=== PATIENT | female | born 1990 | race Caucasian/White ===

== ENCOUNTER 2019-03-13 10:35 | Emergency (ER) | payer OTHER ==
[2019-03-13 10:45] VITALS: BP 114/73; PULSE 79; RESP 18; TEMP 97.7
[2019-03-13] MEDS ORDERED: predniSONE 20 MG TAB PO STA (11:08)
[2019-03-13] MEDS ORDERED: KETOROLAC 60 MG/2 ML VIAL IM STA (11:08)
--- NOTE | 2019-03-13 11:33 | ED ---
Back Pain HPI - General Chief Complaint: Back Pain/Injury Stated Complaint: Sciatic Pain Time Seen by Provider: 03/13/19 10:52 Source: patient Limitations: physical limitation - History of Present Illness Initial Comments: 28yo female presenting for "sciatic pain". Patient states she has been sleeping on an air mattress for the past 2 nights. She states she began noticing sharp pain that starts mid buttock and and radiates toward the left lower leg. She states that it increases with range of motion. Patient denies loss of bowel bladder control urinary retention fever or chills night sweats, muscle weakness or loss sensation of the lower extremities, IV drug use she denies history of cancer. Patient denies any specific falls or trauma to the low back. Remaining ROS (-). Upon arrival patient appears well, no signs of acute distress. Pt states she has experienced similar pain about 6 years ago that resolved. - Related Data Previous Rx's Medication Instructions Recorded Ibuprofen 800 mg PO Q8H PRN 7 Days #21 tablet 03/13/19 predniSONE 20 mg PO DAILY 5 Days #5 tab 03/13/19 Allergies Allergy/AdvReac Type Severity Reaction Status Date / Time No Known Allergies Allergy Verified 03/13/19 10:45 Review of Systems ROS Statement: Those systems with pertinent positive or pertinent negative responses have been documented in the HPI. ROS Other: All systems not noted in ROS Statement are negative. Past Medical History Additional Past Medical History / Comment(s): back pain History of Any Multi-Drug Resistant Organisms: None Reported Past Surgical History: No Surgical Hx Reported Past Psychological History: No Psychological Hx Reported Smoking Status: Never smoker Past Alcohol Use History: Occasional Past Drug Use History: Marijuana General Exam - General Exam Comments Initial Comments: General: The patient is awake and alert, in no distress, and does not appear acutely ill. Eye: Pupils are equal, round and reactive to light, extra-ocular movements are intact. No nystagmus. There is normal conjunctiva bilaterally. No signs of icterus. Cardiovascular: There is a regular rate and rhythm. No murmur, rub or gallop is appreciated. Respiratory: Lungs are clear to auscultation, respirations are non-labored, breath sounds are equal. No wheezes, stridor, rales, or rhonchi. Gastrointestinal: Soft, non-distended, non-tender abdomen without masses or organomegaly noted. There is no rebound or guarding present. Musculoskeletal: Normal ROM of the LE b/l. Strength 5/5 of the LE equal b/l. (+) SLR of the left lower extremities. Sensation intact of the LE bilaterally. DP pulses equal bilaterally 2+. +2/5 Patellar and achilles DTR. No myoclonus or fasiculations. Neurological: A&O x 3. CN II-XII intact, There are no obvious motor or sensory deficits. Coordination appears grossly intact. Speech is normal. Skin: Skin is warm and dry and no rashes or lesions are noted. Psychiatric: Cooperative, appropriate mood & affect, normal judgment. Limitations: physical limitation Course Vital Signs 03/13/19 10:43 Temperature 97.7 F Pulse Rate 79 Respiratory 18 Rate Blood Pressure 114/73 O2 Sat by Pulse 100 Oximetry Medical Decision Making - Medical Decision Making 28-year-old feel presenting for sharp shooting pain down the left leg. Patient states she has been sleeping on an air mattress this is when symptoms started. Patient is positive straight leg raise of the left leg denies any falls injury or trauma to the back. No red flags on history taking. No evidence of cauda equina. Full strength of the lower extremities. No loss of sensation. Sensation is present in the saddle region. Patient appears well she is able to ambulate. No evidence of gait instability. Patient provider Toradol and prednisone in the ER. At this time feel patient is stable for discharge with o utpatient primary f/u, sciatic stretches, new sleep arrangement, antiinflammatories and oral steroid. I discussed the case by attending provider Dr. Doherty who is agreeable with plan. Disposition Clinical Impression: Sciatic leg pain Disposition: HOME SELF-CARE Condition: Good Instructions (If sedation given, give patient instructions): Sciatica (ED), Lower Back Exercises (ED) Additional Instructions: Please use medication as discussed. Please follow-up with family doctor in the next 2 days. Please return to emergency room if the symptoms increase or worsen or for any other concerns. Prescriptions: Ibuprofen 800 mg PO Q8H PRN 7 Days #21 tablet PRN Reason: Pain predniSONE 20 mg PO DAILY 5 Days #5 tab Is patient prescribed a controlled substance at d/c from ED?: No Referrals: None,Stated [Primary Care Provider] - 1-2 [facility]2 [facility] Time of Disposition: 11:46
[2019-03-13] MEDS ORDERED: ACET/COD 300 MG/30 MG STARTER PACK 6 TAB BTL PO STA (11:49)
== END 2019-03-13 12:02 | disposition home or self-care (01) ==
LOC: EC 10:35
DX: M54.42 Lumbago with sciatica, left side (principal); Z53.29 Procedure and treatment not carried out because of patient's decision for other reasons
CPT/HCPCS: 99283; 96372; J1885; J7512

== ENCOUNTER 2023-11-05 16:16 | Emergency (ER) | payer SELFPAY ==
--- NOTE | 2023-11-05 16:42 | ED ---
General Adult HPI - General Source: patient, RN notes reviewed Mode of arrival: ambulatory Limitations: no limitations <Selene Fountain - Last Filed: 11/05/23 16:41> - General Source: patient, RN notes reviewed Mode of arrival: ambulatory Limitations: no limitations - History of Present Illness Onset/Timin -: days(s) <Olayinka Whittington - Last Filed: 11/05/23 18:43> - General Stated complaint: Stuffy nose,poss covid Time Seen by Provider: 11/05/23 16:41 - History of Present Illness Initial comments: 33-year-old female presents to the emergency department for COVID testing. Patient states that she was exposed to a friend who has COVID and states that shortly after she developed upper respiratory symptoms including rhinorrhea, cough. Denies chest pain, shortness of breath. (Selene Fountain) This is a pleasant 33-year-old female presents emergency department complaining of runny nose, cough, body aches, occasional shortness of breath, no chest pain. No productive cough. Minimal headache. No neck stiffness. No skin rashes or lesions. No nausea or vomiting. No abdominal pain. Denies chance of . No problems abdominal with urination. Exposed to COVID-19. N Past medical, surgical, social, and family history reviewed. (Olayinka Whittington) - Related Data Previous Rx's Medication Instructions Recorded Ibuprofen 800 mg PO Q8H PRN 7 Days #21 tablet 03/13/19 predniSONE [Deltasone] 20 mg PO DAILY 5 Days #5 tab 03/13/19 Albuterol Inhaler [Ventolin Hfa 2 puff INHALATION Q4HR PRN #1 each 11/05/23 Inhaler] Allergies Allergy/AdvReac Type Severity Reaction Status Date / Time No Known Allergies Allergy Verified 03/13/19 10:45 Review of Systems ROS Other: All systems not noted in ROS Statement are negative. <Selene Fountain - Last Filed: 11/05/23 16:41> ROS Other: All systems not noted in ROS Statement are negative. <Olayinka Whittington - Last Filed: 11/05/23 18:43> ROS Statement: Those systems with pertinent positive or pertinent negative responses have been documented in the HPI. Past Medical History Additional Past Medical History / Comment(s): back pain History of Any Multi-Drug Resistant Organisms: None Reported Past Surgical History: No Surgical Hx Reported Past Psychological History: No Psychological Hx Reported Past Alcohol Use History: Occasional Past Drug Use History: Marijuana <Selene Fountain - Last Filed: 11/05/23 16:41> General Exam General appearance: alert, in no apparent distress Head exam: Present: atraumatic, normocephalic, normal inspection Eye exam: Present: normal appearance, PERRL, EOMI. Absent: scleral icterus, conjunctival injection, periorbital swelling ENT exam: Present: normal exam, normal oropharynx, mucous membranes moist, TM's normal bilaterally, normal external ear exam, other (No evidence of deep space infection. No peritonsillar abscess, no oral lesions or ulcerations, uvula midline). Absent: mucous membranes dry Neck exam: Present: normal inspection, full ROM. Absent: tenderness, meningismus, lymphadenopathy Respiratory exam: Present: normal lung sounds bilaterally. Absent: respiratory distress, wheezes, rales, rhonchi, stridor, chest wall tenderness, accessory muscle use, decreased breath sounds, prolonged expiratory Cardiovascular Exam: Present: regular rate, normal rhythm, normal heart sounds. Absent: systolic murmur, diastolic murmur, rubs, gallop, clicks GI/Abdominal exam: Present: soft, normal bowel sounds. Absent: distended, tenderness, guarding, rebound, rigid Extremities exam: Present: normal inspection, full ROM, normal capillary refill. Absent: tenderness, pedal edema, joint swelling, calf tenderness Back exam: Present: normal inspection Neurological exam: Present: alert, oriented X3, CN II-XII intact. Absent: motor sensory deficit Psychiatric exam: Present: normal affect, normal mood Skin exam: Present: warm, dry, intact, normal color. Absent: rash <Olayinka Whittington - Last Filed: 11/05/23 18:43> - General Exam Comments Initial Comments: Patient does not appear to be ill or toxic. Vital signs reviewed. Patient noted to be hypertensive. Cap refill less than 2 seconds. No mottling. Cranial nerves II through XII grossly intact. Alert and orient x 4. (Olayinka Whittington) Course Vital Signs 11/05/23 16:39 Temperature 98.2 F Pulse Rate 82 Respiratory 16 Rate Blood Pressure 169/104 O2 Sat by Pulse 100 Oximetry Medical Decision Making <Olayinka Whittington - Last Filed: 11/05/23 18:43> - Medical Decision Making Was pt. sent in by a medical professional or institution? @ -No Did you speak to anyone other than the patient for history? @ -Patient's friend also in the room Did you review nursing and triage notes? @ -Agree Were old charts reviewed? @ -No Differential Diagnosis? @ -Differential diagnosis includes but is not limited to: Influenza, COVID-19, RSV, other cause of viral respiratory infection, does not appear consistent with bacterial infection or lobar pneumonia. No adventitious lung sounds. Does not appear to be consistent with significant systemic infectious process. Not consistent with other cardiopulmonary disease. EKG interpreted by me (3pts min.)? @ -[none] X-rays interpreted by me (1pt min.)? @ -[none] CT interpreted by me (1pt min.)? @ -[none] U/S interpreted by me (1pt. min.)? @ -[none] What testing was considered but not performed? (CT, X-rays, U/S, labs)? Why? @Chest x-ray was considered. However given the patient's well appearance, I did not feel this would change course of treatment or therapy. X-ray deferred. What meds were considered but not given? Why? @ -Paxlovid was considered. However after a long discussion with the patient regarding benefits versus risks. Patient is deferring this medication. Did you discuss the management of the patient with other professionals? @ -No Did you reconcile home meds? @ -[none] Was smoking cessation discussed for >3mins.? @ -[none] Was critical care preformed (if so, how long)? @ -[none] Were there social determinants of health that impacted care today? How? (Homelessness, low income, unemployed, alcoholism, drug addiction, transportation, low edu. Level, literacy, decrease access to med. care, prison, rehab)? @ -None noted Was there de-escalation of care discussed even if they declined? (Discuss DNR or withdrawal of care, Hospice)? @ -[Discuss DNR or withdrawal of care, Hospice?] What co-morbidities impacted this encounter? (DM, HTN, Smoking, COPD, CAD, Cancer, CVA, Hep., AIDS, mental health diagnosis, sleep apnea, morbid obesity)? @ -Previous instances of elevated blood pressure. Blood pressure elevated here in excess of 160 systolic over 100 diastolic. Patient states that she has been told several times previously that she has had elevated blood pressure. Patient has never been medicated. I did give the patient follow-up with a primary care physician. Discussed risks of long-term hypertension. Discussed the conservative therapy. Gave instructions. Was patient admitted / discharged? @ -Discharge, stable, no distress Undiagnosed new problem with uncertain prognosis? @ -[none] Drug Therapy requiring intensive monitoring for toxicity (Heparin, Nitro, Insulin, Cardizem)? @ -[none] Were any procedures done? @ -[none] Diagnosis/symptom? @ -COVID-19, elevated blood pressure Acute, or Chronic, or Acute on Chronic? @ -Acute, chronic elevations in blood pressure Uncomplicated (without systemic symptoms) or Complicated (systemic symptoms)? @ -Uncomplicated Side effects of treatment? @ -[none] Exacerbation, Progression, or Severe Exacerbation] @ -Acute COVID-19 infection with chronic elevations of blood pressure Poses a threat to life or bodily function? @ -Unlikely given the patient's presentation. Patient did meet criteria for Paxlovid treatment. However patient is refusing this medication. Patient did ask for an inhaler. Apparently she benefited previously from this. Albuterol 2 puffs every 4 hours as needed prescribed. Other conservative therapy discussed in detail. Work note given. Quarantine measures discussed. The case was discussed in detail with ED attending physician. Presentation, findings, treatment plan discussed in detail. Patient was told to return to the ER for any signs or symptoms worsen. Told to return immediately if any other problems arise. All questions answered. Treatment plan discussed. Patient in agreement Every effort has been made to ensure accuracy of this dictation. However, due to the limitations of electronic medical records and dictation devices, errors in charting still occur. (Olayinka Whittington) - Lab Data Lab Results 11/05/23 Range/Units 16:40 Influenza Type A (PCR) Not Detected (Not Detectd) Influenza Type B (PCR) Not Detected (Not Detectd) RSV (PCR) Not Detected (Not Detectd) SARS-CoV-2 (PCR) Detected A (Not Detectd) Disposition <Selene Fountain - Last Filed: 11/05/23 16:41> Is patient prescribed a controlled substance at d/c from ED?: No When asked, does pt state using other controlled substances?: No Time of Disposition: 18:34 <Olayinka Whittington - Last Filed: 11/05/23 18:43> Clinical Impression: COVID-19, Viral infection, Elevated blood pressure reading Disposition: HOME SELF-CARE Condition: Good Instructions (If sedation given, give patient instructions): Hypertension (ED), COVID-19 (Coronavirus Disease 2019) (ED), Social Distancing Guidelines for COVID-19 (ED) Additional Instructions: Quarantine as directed for 5 days. Wear a mask for an additional 5 days. Use [id number] acetaminophen and or ibuprofen for symptomatic control. Drink plenty of fluids. Make a follow-up appoint with one of the primary care physicians. Follow-up with your regular physician as directed. Return to the ER immediately if any symptoms worsen, new symptoms arise, or any other problems develop. I have provided the name of a primary care physician recommended to follow-up with. You should have your blood pressure monitored, you do not want to have high blood pressure chronically. Prescriptions: Albuterol Inhaler [Ventolin Hfa Inhaler] 2 puff INHALATION Q4HR PRN #1 each PRN Reason: Wheezing Referrals: Chris Medel MD [REFERRING] - 11/13/23
[2023-11-05 16:54] VITALS: RESP 16
[2023-11-05 19:01] VITALS: BP 150/89; PULSE 80; TEMP 98.1
== END 2023-11-05 19:10 | disposition home or self-care (01) ==
LOC: EC 16:16
DX: U07.1 COVID-19 (principal); R03.0 Elevated blood-pressure reading, without diagnosis of hypertension; F12.90 Cannabis use, unspecified, uncomplicated
CPT/HCPCS: 87636; 99283

== ENCOUNTER → 2023-11-05 | Outpatient (CLI) | payer SELFPAY ==
--- NOTE | 2023-11-06 07:24 | US ---
EXAMINATION TYPE: US pelvis complete transvag DATE OF EXAM: 11/05/2023 COMPARISON: NONE CLINICAL INDICATION: Female, 33 years old with history of N93.9 ABNORMAL UTERINE AND VAGINAL BLEEDING , UNSPE; abn bleeding TECHNIQUE: Transvaginal (TV) and Transabdominal (TA) . EXAM MEASUREMENTS: Uterus: 8.4 x 3.8 x 4.5 cm Endometrial Stripe: .7 cm Right Ovary: 2.2 x 1.8 x 2.4 cm Left Ovary: 3.1 x 2.1 x 2.4 cm 1. Uterus: Anteverted wnl 2. Endometrium: wnl 3. Right Ovary: wnl 4. Left Ovary: Anechoic area 2.1 x 2.4 x 3.2 cm 5. Bilateral Adnexa: wnl 6. Posterior cul-de-sac: wnl IMPRESSION: Anechoic area left ovary may reflect a small complex cyst which can be confirmed on follow-up study i n 6 weeks.
== END | disposition home or self-care (01) ==
LOC: RADUSWWP 15:41
PROVIDERS: ATTEND Obstetrics & Gynecology
DX: N93.9 Abnormal uterine and vaginal bleeding, unspecified (principal)
CPT/HCPCS: 76830; 76856

== ENCOUNTER → 2024-09-11 | Outpatient (CLI) | payer MEDICAID ==
--- NOTE | 2024-09-11 13:52 | US ---
EXAMINATION TYPE: US transvaginal DATE OF EXAM: 09/11/2024 COMPARISON: US 2023 CLINICAL INDICATION: Female, 34 years old with history of N83.209 OVARIAN CYST; Follow up TECHNIQUE: Transvaginal (TV). Grayscale imaging of the pelvis. Transvaginal only per physician order FINDINGS: Date of LMP: 08/16/2024 EXAM MEASUREMENTS: Uterus: 7.7 x 4.5 x 5.3 cm Endometrial Stripe: 1.0 cm Right Ovary: 3.1 x 2.3 x 2.0 cm Left Ovary: 3.5 x 2.5 x 2.3 cm 1. Uterus: anteverted 2. Endometrium: appears wnl 3. Right Ovary: multiple follicles 4. Left Ovary: multiple follicles 5. Bilateral Adnexa: wnl 6. Posterior cul-de-sac: wnl IMPRESSION: No evidence for acute process. Bilateral ovarian follicles stenosis identified. [facility] Rufina Daley, , 09/11/2024 1:50 PM
== END | disposition home or self-care (01) ==
LOC: RADUSWWP 12:52
PROVIDERS: ATTEND Family Medicine
DX: N83.209 Unspecified ovarian cyst, unspecified side (principal)
CPT/HCPCS: 76830